=== PATIENT | female | born 2000 | race Caucasian/White ===

== ENCOUNTER 2024-10-07 20:22 | Emergency (ER) | payer SELFPAY ==
[~2024-10-07] VITALS: Ht 162.6 cm; Wt 65.0 kg
[2024-10-07 20:26] VITALS: BP 125/65; PULSE 98; RESP 18; TEMP 36.8; O2SAT 98
== END 2024-10-08 00:19 | disposition left against medical advice (07) ==
LOC: ER 20:22
DX: M25.562 Pain in left knee (principal)
CPT/HCPCS: 99283